=== PATIENT | male | born 1980 | race American Indian/Alaskan Native ===

== ENCOUNTER 2017-06-21 12:47 | Emergency (ER) | payer MEDICAID ==
[2017-06-21 14:18] VITALS: BP 128/85
[2017-06-21] MEDS ORDERED: HYDROmorphone 1 MG/ML Syringe IM ONE (14:34)
[2017-06-21] MEDS ORDERED: Ondansetron 4 MG Tab.DIS PO ONE (14:34)
--- NOTE | 2017-06-21 14:39 | EDM.PDOC ---
ED HPI GENERAL MEDICAL PROBLEM - General Chief Complaint: Abdominal Pain Stated Complaint: GROIN,ABDOMINAL PAIN,SWOLLEN TESTICLE Time Seen by Provider: 06/21/17 14:18 Source of Information: Reports: Patient, Family, RN Notes Reviewed History Limitations: Reports: No Limitations - History of Present Illness INITIAL COMMENTS - FREE TEXT/NARRATIVE: 37-year-old gentleman presents emergency department day complaint of left testicular pain, he's had pain for about 4 days it is progressively gotten worse he does have a history of this a couple years back underwent ultrasound which demonstrated an inguinal hernia he has since had hernia repair and after repair had no difficulties. He denies any fever has had nausea his other complaint is urinary frequency with no dysuria and he complains of a weakened stream with hesitation and difficult initiation of stream Left Groin Pain Score (Numeric/FACES): 8 - Related Data Allergies Allergy/AdvReac Type Severity Reaction Status Date / Time Penicillins Allergy Hives Verified 06/21/17 14:18 Home Meds: Home Meds Ibuprofen 800 mg PO ASDIRECTED 03/01/16 [History] Past Medical History HEENT History: Reports: Otitis Media Other HEENT History: left side of nose broke so "it's pretty much closed" Respiratory History: Reports: Asthma Gastrointestinal History: Reports: GERD Genitourinary History: Reports: UTI, Recurrent Musculoskeletal History: Reports: Back Pain, Chronic, Fracture Neurological History: Reports: Concussion, Seizure Psychiatric History: Reports: Anxiety, Bipolar, Depression, Psych Hospitalization(s), Suicide Attempt Other Psychiatric History: psych hospitalization for suicide attempt in 1999 Dermatologic History: Reports: Eczema - Infectious Disease History Infectious Disease History: Reports: Chicken Pox - Past Surgical History HEENT Surgical History: Reports: Myringotomy w Tube(s) GI Surgical History: Reports: Hernia, Inguinal, Hernia Repair/Other Dermatological Surgical History: Reports: Plastic Surgical Reconstruction/Repair , Other (See Below) Social & Family History - Family History Family Medical History: Noncontributory - Tobacco Use Smoking Status *Q: Heavy Tobacco Smoker Years of Tobacco use: 22 Packs/Tins Daily: 1 Used Tobacco, but Quit: No Second Hand Smoke Exposure: No - Alcohol Use Days Per Week of Alcohol Use: 0 - Recreational Drug Use Recreational Drug Use: Yes Drug Use in Last 12 Months: No Recreational Drug Type: Reports: Marijuana/Hashish Recreational Drug Use Frequency: Socially Recreational Drug Last Use: 1998 ED ROS GENERAL - Review of Systems Review Of Systems: See Below Constitutional: Denies: Fever, Chills HEENT: Reports: No Symptoms Respiratory: Reports: No Symptoms Cardiovascular: Reports: No Symptoms GI/Abdominal: Reports: No Symptoms : Reports: Frequency, Pain, Other (Left testicular pain) Skin: Reports: No Symptoms ED EXAM, RENAL/ - Physical Exam Exam: See Below Exam Limited By: No Limitations General Appearance: Alert, Mild Distress Respiratory/Chest: No Respiratory Distress GI/Abdominal: Soft, Non-Tender (Male) Exam: No Hernia, Normal Inspection, Circumcised, Cremasteric Reflex, Scrotum Tenderness (L). No: Penile Lesions Rectal (Males) Exam: Normal Exam, Normal Rectal Tone, Tenderness Course - Vital Signs Last Recorded V/S: Last Vital Signs Temp 98.6 F 06/21/17 14:16 Pulse 95 06/21/17 14:16 Resp 16 06/21/17 14:16 BP 128/85 06/21/17 14:16 Pulse Ox 98 06/21/17 14:16 - Orders/Labs/Meds Orders: Active Orders 24 hr Category Date Time Status Scrotal Duplex Ltd [US] Stat Exams 06/21/17 Taken Scrotum and Contents [US] Stat Exams 06/21/17 14:34 Taken Labs: Laboratory Tests 06/21/17 06/21/17 06/21/17 Range/Units 14:43 14:45 14:45 WBC 14.8 H (4.5-11.0) K/uL RBC 4.73 (4.30-5.90) M/uL Hgb 14.3 (12.0-15.0) g/dL Hct 41.8 (40.0-54.0) % MCV 88 (80-98) fL MCH 30 (27-31) pg MCHC 34 (32-36) % Plt Count 326 (150-400) K/uL Neut % (Auto) 69 H (36-66) % Lymph % (Auto) 17 L (24-44) % Luce % (Auto) 11 H (2-6) % Eos % (Auto) 2 (2-4) % Baso % (Auto) 1 (0-1) % Sodium 141 (140-148) mmol/L Potassium 4.2 (3.6-5.2) mmol/L Chloride 106 (100-108) mmol/L Carbon Dioxide 28 (21-32) mmol/L Anion Gap 6.6 (5.0-14.0) mmol/L BUN 16 (7-18) mg/dL Creatinine 1.0 (0.8-1.3) mg/dL Est Cr Clr Drug Dosing 112.08 mL/min Estimated GFR (MDRD) > 60 (>60) Glucose 83 (74-106) mg/dL Calcium 8.7 (8.5-10.1) mg/dL Urine Color Yellow Urine Appearance Clear Urine pH 7.0 (4.5-8.0) Ur Specific [place] 1.005 L (1.008-1.030) Urine Protein Negative (NEGATIVE) mg/dL Urine Glucose (UA) Normal (NEGATIVE) mg/dL Urine Ketones Negative (NEGATIVE) mg/dL Urine Occult Blood Negative (NEGATIVE) Urine Nitrite Negative (NEGAITVE) Urine Bilirubin Negative (NEGATIVE) Urine Urobilinogen Normal (NORMAL) mg/dL Ur Leukocyte Esterase Negative (NEGATIVE) Urine RBC 0-5 (0-5) Urine WBC 0-5 (0-5) Ur Epithelial Cells Rare Amorphous Sediment Not seen Urine Bacteria Not seen Urine Mucus Not seen Meds: Medications Discontinued Medications Generic Name Dose Route Start Last Admin Trade Name Kenrickq PRN Reason Stop Dose Admin Hydromorphone HCl 1 mg 06/21/17 14:34 06/21/17 14:51 Dilaudid IM 06/21/17 14:35 1 mg ONETIME ONE Administration Ondansetron HCl 4 mg 06/21/17 14:34 06/21/17 14:51 Zofran Odt PO 06/21/17 14:35 4 mg ONETIME ONE Administration Departure - Departure Time of Disposition: 15:35 Disposition: Home, Self-Care 01 Condition: Good Clinical Impression: Prostatitis Qualifiers: Prostatitis type: acute Qualified Code(s): N41.0 - Acute prostatitis - Discharge Information Referrals: PCP,None [Primary Care Provider] - Forms: ED Department Discharge Additional Instructions: Take full course of antibiotics, use Percocet as needed for breakthrough pain, use ibuprofen for baseline pain control, Please followup with your primary care provider in 7-10 days if not better, please call return to the emergency department with worsening of symptoms. - My Orders Last 24 Hours: My Active Orders 06/21/17 Scrotal Duplex Ltd [US] Stat 06/21/17 14:34 Scrotum and Contents [US] Stat - Assessment/Plan Last 24 Hours: My Active Orders 06/21/17 Scrotal Duplex Ltd [US] Stat 06/21/17 14:34 Scrotum and Contents [US] Stat Plan: Assessment Acuity = acute Site and laterality = prostatitis Etiology = probable bacterial cause Manifestations = testicular pain Location of injury = Home Lab values = WBC elevated at 14.8 consistent leukocytosis, BMP unremarkable urinalysis unremarkable Plan He had good relief from the hydromorphone provided for pain control, plan is to discharge home prescription written for ciprofloxacin 500 mg by mouth twice a day 28 days plus Percocet total #20, 5/325 for pain control as needed follow- up with primary care in 7-10 days if no improvement Patient was in agreement with the plan all questions were answered, they were instructed to return to the emergency department or call for worsening symptoms. This note was dictated using [employer] voice recognition software please call with any questions.
--- NOTE | 2017-06-22 08:48 | US ---
Scrotal Duplex Ltd, Scrotum and Contents INDICATION: LT TESTICLE PAIN COMPARISON: None. FINDINGS: The testicles are normal in size and echogenicity. Multiple right epididymal cysts, measuri ng up to 4 mm. There is normal color flow to each testicle. Normal homogeneous echotexture of both te sticles. Small bilateral hydroceles. IMPRESSION: 1. Right epididymal cysts. 2. Small bilateral hydroceles.
== END 2017-06-21 15:53 | disposition home or self-care (01) ==
LOC: JP.ED 12:47
DX: N41.0 Acute prostatitis (principal); J45.909 Unspecified asthma, uncomplicated; K21.9 Gastro-esophageal reflux disease without esophagitis; F31.9 Bipolar disorder, unspecified; F17.210 Nicotine dependence, cigarettes, uncomplicated; Z96.22 Myringotomy tube(s) status; Z98.890 Other specified postprocedural states; Z87.440 Personal history of urinary (tract) infections; Z88.0 Allergy status to penicillin
CPT/HCPCS: 36415; 76870; 80048; 81001; 85025; 93976; 96372; 99284; A9270; J1170

== ENCOUNTER 2020-09-30 09:30 | Emergency (ER) | payer MEDICAID ==
[2020-09-30 09:41] VITALS: BP 136/99; PULSE 94
--- NOTE | 2020-09-30 10:04 | EDM.PDOC ---
ED HPI GENERAL MEDICAL PROBLEM - General Chief Complaint: General Stated Complaint: MAYBE COVID Time Seen by Provider: 09/30/20 09:45 Source of Information: Reports: Patient, RN. Denies: Old Records History Limitations: Reports: Other (limited records) - History of Present Illness INITIAL COMMENTS - FREE TEXT/NARRATIVE: 40 yo male here with a nonpruritic rash between his fingers. Had this in the past and got better with Valtrex after many meds were tried. No actual diagnosis was made(tx'd in [facility], [place]). Called the clinic today and was told to come to the ER. Had a negative Covid test a couple days ago. Onset: Gradual Duration: Day(s):, Getting Worse Location: Reports: Upper Extremity, Left, Upper Extremity, Right Quality: Reports: Dull Severity: Mild Improves with: Reports: None Worsens with: Reports: Other (unknown) Context: Reports: Other (see HPI) Associated Symptoms: Reports: Malaise Treatments PUBLIC ADDRESS [employer]PER[employer]: Reports: Other (see below) (none) Bilateral Hand Pain Score (Numeric/FACES): 8 - Related Data Allergies Allergy/AdvReac Type Severity Reaction Status Date / Time Penicillins Allergy Hives Verified 06/21/17 14:18 Home Meds: Home Meds Ibuprofen 800 mg PO ASDIRECTED 03/01/16 [History] QUEtiapine [SEROquel] 100 mg PO ASDIRECTED 09/30/20 [History] QUEtiapine [SEROquel] 100 mg PO ASDIRECTED 09/30/20 [History] QUEtiapine [SEROquel] 200 mg PO ASDIRECTED 09/30/20 [History] Zolpidem Tartrate [Ambien] 5 mg PO BEDTIME 09/30/20 [History] diazePAM [Valium] 5 mg PO TID PRN 09/30/20 [History] valACYclovir [Valtrex] 1,000 mg PO BID #20 tablet 09/30/20 [Rx] Past Medical History HEENT History: Reports: Otitis Media Other HEENT History: left side of nose broke so "it's pretty much closed" Respiratory History: Reports: Asthma Gastrointestinal History: Reports: GERD Genitourinary History: Reports: UTI, Recurrent Musculoskeletal History: Reports: Back Pain, Chronic, Fracture Neurological History: Reports: Concussion, Seizure Psychiatric History: Reports: Anxiety, Bipolar, Depression, Psych Hospitalization(s), Suicide Attempt Other Psychiatric History: psych hospitalization for suicide attempt in 1999 Dermatologic History: Reports: Eczema - Infectious Disease History Infectious Disease History: Reports: Chicken Pox - Past Surgical History HEENT Surgical History: Reports: Myringotomy w Tube(s) GI Surgical History: Reports: Hernia, Inguinal, Hernia Repair/Other Musculoskeletal Surgical History: Reports: Other (See Below) Other Musculoskeletal Surgeries/Procedures:: "reconstructive surgery on my face" per pt. Dermatological Surgical History: Reports: Plastic Surgical Reconstruction/Repair, Other (See Below) Social & Family History - Family History Family Medical History: No Pertinent Family History - Tobacco Use Tobacco Use Status *Q: Current Every Day Tobacco User Years of Tobacco use: 25 Packs/Tins Daily: 1 - Caffeine Use Caffeine Use: Reports: Coffee, Energy Drinks, Soda, Tea - Recreational Drug Use Recreational Drug Use: No ED ROS GENERAL - Review of Systems Review Of Systems: See Below Constitutional: Reports: Malaise HEENT: Reports: No Symptoms Respiratory: Reports: No Symptoms Cardiovascular: Reports: No Symptoms GI/Abdominal: Reports: No Symptoms : Reports: No Symptoms Musculoskeletal: Reports: No Symptoms Skin: Reports: Rash (in webspace between fingers of both hands, not involving feet. ) Neurological: Reports: No Symptoms ED EXAM, GENERAL - Physical Exam Exam: See Below Exam Limited By: No Limitations General Appearance: Alert, WD/WN, No Apparent Distress Eye Exam: Bilateral Eye: Normal Inspection Ears: Normal External Exam, Normal Canal, Hearing Grossly Normal Ear Exam: Bilateral Ear: Auricle Normal, Canal Normal Nose: Normal Inspection, No Blood Throat/Mouth: Normal Inspection, Normal Lips, Normal Oropharynx, Normal Voice, No Airway Compromise Head: Atraumatic, Normocephalic Neck: Normal Inspection Respiratory/Chest: No Respiratory Distress, Lungs Clear, Normal Breath Sounds, No Accessory Muscle Use Cardiovascular: Regular Rate, Rhythm, No Edema GI/Abdominal: Normal Bowel Sounds, Soft, Non-Tender, No Distention Back Exam: Normal Inspection. No: CVA Tenderness (R), CVA Tenderness (L) Extremities: Normal Inspection, Normal Range of Motion, Non-Tender Neurological: Alert, Oriented, CN II-XII Intact, Normal Cognition, No Motor/Sensory Deficits Psychiatric: Normal Affect, Normal Mood Skin Exam: Warm, Dry, Intact, Other (purplish discoloration of the skin between his fingers of both hands, some of the area is blistered. ) Course - Vital Signs Last Recorded V/S: Last Vital Signs Temp 35.8 C L 09/30/20 09:38 Pulse 94 09/30/20 09:38 Resp 18 09/30/20 09:38 BP 136/99 H 09/30/20 09:38 Pulse Ox 97 09/30/20 09:38 - Orders/Labs/Meds Labs: Laboratory Tests 09/30/20 09/30/20 Range/Units 11:35 11:42 WBC 11.3 H (4.5-11.0) K/uL RBC 4.56 (4.30-5.90) M/uL Hgb 13.4 (12.0-15.0) g/dL Hct 41.8 (40.0-54.0) % MCV 92 (80-98) fL MCH 29 (27-31) pg MCHC 32 (32-36) % Plt Count 303 (150-400) K/uL Sodium 138 L (140-148) mmol/L Potassium 4.1 (3.6-5.2) mmol/L Chloride 105 (100-108) mmol/L Carbon Dioxide 25 (21-32) mmol/L Anion Gap 12.1 (5.0-14.0) mmol/L BUN 14 (7-18) mg/dL Creatinine 1.1 (0.8-1.3) mg/dL Est Cr Clr Drug Dosing 96.02 mL/min Estimated GFR (MDRD) > 60 (>60) Glucose 100 (74-106) mg/dL Calcium 8.6 (8.5-10.1) mg/dL Total Bilirubin 0.1 L (0.2-1.0) mg/dL AST 34 (15-37) U/L ALT 77 (12-78) U/L Alkaline Phosphatase 73 (46-116) U/L C-Reactive Protein 0.23 (0.0-0.3) mg/dL Total Protein 6.4 (6.4-8.2) g/dL Albumin 3.4 (3.4-5.0) g/dL Globulin 3.0 (2.3-3.5) g/dL Albumin/Globulin Ratio 1.1 L (1.2-2.2) - Re-Assessments/Exams Free Text/Narrative Re-Assessment/Exam: 09/30/20 13:05 Note rash does not look herpetic. Departure - Departure Time of Disposition: 13:06 Disposition: Home, Self-Care 01 Condition: Fair Clinical Impression: Hand dermatitis - Discharge Information *PRESCRIPTION DRUG MONITORING PROGRAM REVIEWED*: No *COPY OF PRESCRIPTION DRUG MONITORING REPORT IN PATIENT DANK: No Prescriptions: valACYclovir [Valtrex] 1,000 mg PO BID #20 tablet Referrals: PCP,None [Primary Care Provider] - Forms: ED Department Discharge Additional Instructions: F/U with Dermatology. F/U in the clinic in the interim as needed. You may give the Valtrex a try in the interim. Sepsis Event Note (ED) - Evaluation Sepsis Screening Result: Possible Sepsis Risk - Focused Exam Vital Signs: Vital Signs Temp Pulse Resp BP Pulse Ox 09/30/20 09:38 35.8 C L 94 18 136/99 H 97
== END 2020-09-30 13:30 | disposition home or self-care (01) ==
LOC: JP.ED 09:30
DX: L30.9 Dermatitis, unspecified (principal); F17.210 Nicotine dependence, cigarettes, uncomplicated; J45.909 Unspecified asthma, uncomplicated; F41.9 Anxiety disorder, unspecified; F32.9 Major depressive disorder, single episode, unspecified; Z88.0 Allergy status to penicillin; Z79.899 Other long term (current) drug therapy
CPT/HCPCS: 36415; 80053; 85027; 86140; 99283